=== PATIENT | female | born 1950 | race Caucasian/White ===

== ENCOUNTER 2016-10-20 20:25 | Emergency (ER) | payer OTHER, MEDICARE ==
[2016-10-20 20:42] VITALS: BP 139/63
--- NOTE | 2016-10-20 21:14 | UC ---
Hip/Pelvis Pain - HPI Summary HPI Summary: 66 yo female 3 weeks s/p fall c/o right hip and pelvis pain has been using a cane to get around - History Of Current Complaint Chief Complaint: UCLowerExtremity Stated Complaint: RIGHT HIP-FELL Time Seen by Provider: 10/20/16 20:59 Hx Obtained From: Patient Onset/Duration: Sudden Onset, Lasting Weeks - 3 Timing: Constant Severity Initially: Moderate Severity Currently: Severe Pain Intensity: 7 Pain Scale Used: 0-10 Numeric Location: Diffuse Character Of Pain: Throbbing, Spasmodic Alleviating Factor(s): Nothing Associated Signs And Symptoms: Positive: Negative - Allergies/Home Medications Allergies/Adverse Reactions: Allergies Allergy/AdvReac Type Severity Reaction Status Date / Time Adhesive Tape Allergy Rash Verified 10/20/16 20:43 Cefuroxime [From Ceftin] Allergy Anaphylatic Verified 10/20/16 20:43 Shock Latex Allergy Rash Verified 10/20/16 20:43 Oxycodone Allergy Anaphylatic Verified 10/20/16 20:43 Shock Penicillins Allergy Anaphylatic Verified 10/20/16 20:43 Shock Home Medications: Home Medications Albuterol 2.5MG/3ML (0.083%)* [Ventolin 2.5 MG/3 ML NEB.JOVANNA*] 2.5 mg INH Q6H PRN 10/20/16 [History Confirmed 10/20/16] Albuterol HFA INHALER* [Ventolin HFA Inhaler*] 1 puff INH Q4H PRN 10/20/16 [ History Confirmed 10/20/16] Ascorbic Acid TAB* [Vitamin C TAB*] 500 mg PO DAILY 10/20/16 [History Confirmed 10/20/16] Aspirin [Aspirin Adult Low Dose] 81 mg PO DAILY 10/20/16 [History Confirmed 11/03] Cholecalciferol TAB* [Vitamin D TAB*] 400 unit PO DAILY 10/20/16 [History Confirmed 10/20/16] Clindamycin Cap(NF) [Cleocin 300 mg Cap(NF)] 300 mg PO BEDTIME 10/20/16 [ History Confirmed 10/20/16] Clopidogrel TAB* [Plavix TAB*] 75 mg PO DAILY 10/20/16 [History Confirmed ] Conjugated Estrogens VAG CM* [Premarin VAG CREAM*] 1 applic VAGINAL DAILY [History Confirmed 10/20/16] DULoxetine DR CAP* [Cymbalta CAP*] 60 mg PO DAILY 10/20/16 [History Confirmed ] Diclofenac 1% GEL (NF) [Voltaren 1% GEL (NF)] 1 applic TOPICAL 10/20/16 [History ] Fenofibrate [Triglide] 160 mg PO DAILY 10/20/16 [History Confirmed 10/20/16] Ferrous Sulfate TAB* 325 mg PO DAILY 10/20/16 [History Confirmed 10/20/16] Folic Acid TAB* [Folvite TAB*] 1 mg PO DAILY 10/20/16 [History Confirmed ] Furosemide TAB* [Lasix TAB*] 40 mg PO DAILY 10/20/16 [History Confirmed 10/20/16 ] Gabapentin CAP(*) [Neurontin 300 CAP(*)] 300 mg PO TID 10/20/16 [History Confirmed 10/20/16] Glucagon (Rdna) [Glucagon Emergency Kit] 1 mg IJ SEE INSTRUCTIONS 10/20/16 [ History Confirmed 10/20/16] Hydrocodone-Acetaminophen [Hydrocodone/Acetaminophen 10-325 mg] 1 tab PO BID 11/03 [History Confirmed 10/20/16] Insulin Glargine [Lantus] 100 unit SC DAILY 10/20/16 [History Confirmed 10/20/16 ] Insulin Lispro [Humalog Kwikpen] 100 unit SC TID 10/20/16 [History Confirmed 11/03] Loratadine 10 mg PO DAILY 10/20/16 [History Confirmed 10/20/16] Magnesium Oxide TAB* [MagOx 400 TAB*] 400 mg PO DAILY 10/20/16 [History Confirmed 10/20/16] Metoprolol Succinate [Toprol Xl] 50 mg PO DAILY 10/20/16 [History Confirmed 11/03] Morphine TAB (NF) [Morphine 30 MG TAB (NF)] 30 mg PO BID 10/20/16 [History Confirmed 10/20/16] Multiple Vitamins W/ Iron [Daily Vitamin Formula+Ir] 1 tab PO DAILY 10/20/16 [ History Confirmed 10/20/16] Nitrofurantoin Macrocrystals* [Macrodantin*] 50 mg PO BEDTIME 10/20/16 [History Confirmed 10/20/16] Nitroglycerin TAB 0.4 MG* 0.4 mg SL . NEEDED PRN 10/20/16 [History Confirmed 10/20/16] Pantoprazole TAB (NF) [Protonix TAB (NF)] 40 mg PO DAILY 10/20/16 [History Confirmed 10/20/16] Potassium Chlor TAB* [Klor Con ER TAB*] 10 meq PO DAILY 10/20/16 [History Confirmed 10/20/16] Rosuvastatin Calcium [Crestor] 20 mg PO DAILY 10/20/16 [History Confirmed ] Senna/Docusate (NF) [Sennokot-S] 1 tab PO BEDTIME 10/20/16 [History Confirmed ] metFORMIN* [Glucophage*] 1,000 mg PO BID 10/20/16 [History Confirmed 10/20/16] PMH/Surg Hx/FS Hx/Imm Hx Endocrine History Of: Reports: Diabetes Cardiovascular History Of: Reports: Cardiac Disorders, Hypertension Respiratory History Of: Reports: Asthma - Surgical History Surgical History: Yes Surgery Procedure, Year, and Place: TKA-RIGHT. ABDOMINAL PLASTY. CARDIAC STENT. INTESTINAL STENT--10 IN REMOVED. CHOLECYSTECTOMY. L BREAST B/L - Family History Known Family History: Positive: Hypertension - Social History Alcohol Use: None Substance Use Type: None Smoking Status (MU): Never Smoked Tobacco Review of Systems Constitutional: Negative Skin: Negative Eyes: Negative ENT: Negative Respiratory: Negative Cardiovascular: Negative Gastrointestinal: Negative Genitourinary: Negative Motor: Negative Neurovascular: Negative Musculoskeletal: Arthralgia, Myalgia Neurological: Negative Psychological: Negative All Other Systems Reviewed And Are Negative: Yes Physical Exam Triage Information Reviewed: Yes Appearance: Well-Appearing, No Pain Distress, Well-Nourished Vital Signs: Initial Vital Signs Temp 98.1 F 10/20/16 20:30 Pulse 89 10/20/16 20:30 Resp 14 10/20/16 20:30 BP 139/63 10/20/16 20:30 Pulse Ox 100 10/20/16 20:30 Vital Signs Reviewed: Yes Eyes: Positive: Conjunctiva Clear ENT: Negative: Nasal congestion, Nasal drainage, Tonsillar exudate, Trismus, Muffled/hoarse voice Neck: Positive: Supple Respiratory: Positive: Lungs clear, Normal breath sounds, No respiratory distress Cardiovascular: Positive: RRR, No Murmur Neurological: Positive: Alert Psychological Exam: Normal Hip Injury Course/Dx - Differential Dx/Diagnosis Provider Diagnoses: DDD. lumbar radiculopathy. hip contusion Discharge - Discharge Plan Condition: Stable Disposition: HOME Prescriptions: Hydrocodone/Acetamin 10/325(NF [[place] 10/325 (NF)] 1 tab PO Q4HR PRN #10 tab MDD 5 PRN Reason: Pain - Severe Patient Education Materials: Lumbar Radiculopathy (ED) Referrals: Jameson Deras MD [Primary Care Provider] - Additional Instructions: see your back specialist Sunday as planned I suggest you increase your hydrocodone-acetaminophen 10/325 to every 4-6 hours as needed for severe pain Images Front/Back of Body, Lg ([place]): 1 - pain 2 - pain
--- NOTE | 2016-10-20 21:59 | RAD ---
Indication: RIGHT hip pain and limited range of motion post fall 3 weeks ago and subsequent additional falls. Comparison: None. Technique: Supine AP pelvis and AP and frog-leg lateral views RIGHT hip Report: The RIGHT hip is normally located. No fracture of the RIGHT hip or pelvis or pelvic joint diastases evident. Both hips are remarkable for mild axial joint space narrowing and minimal acetabular marginal osteophytosis. Bilateral subchondral sclerosis at the pubic symphysis. Unremarkable sacroiliac joints. Lumbar sacral spine degenerative spondylosis and facet joint osteoarthritis. Surgical clips at the medial RIGHT proximal thigh. Unremarkable soft tissue contours. IMPRESSION: No radiographic evidence for RIGHT hip or pelvic fracture. Degenerative arthropathy.
== END 2016-10-20 22:10 | disposition home or self-care (01) ==
LOC: UCCORT 20:25
DX: S70.01XA Contusion of right hip, initial encounter (principal); W19.XXXA Unspecified fall, initial encounter; Y93.9 Activity, unspecified; Y92.9 Unspecified place or not applicable; M54.16 Radiculopathy, lumbar region; M16.11 Unilateral primary osteoarthritis, right hip; Z88.1 Allergy status to other antibiotic agents; Z88.5 Allergy status to narcotic agent; Z88.0 Allergy status to penicillin; E11.9 Type 2 diabetes mellitus without complications; Z79.4 Long term (current) use of insulin; Z79.84 Long term (current) use of oral hypoglycemic drugs; I10 Essential (primary) hypertension; J45.909 Unspecified asthma, uncomplicated; Z79.82 Long term (current) use of aspirin; Z90.49 Acquired absence of other specified parts of digestive tract; Z95.5 Presence of coronary angioplasty implant and graft
CPT/HCPCS: 99202; G0463